=== PATIENT | female | born 1990 | race Caucasian/White ===

== ENCOUNTER 2017-08-27 15:00 | Emergency (ER) | payer MEDICAID ==
[2017-08-27 15:04] VITALS: BP 111/69; BMI 29.4
--- NOTE | 2017-08-27 16:05 | DR.GENAD ---
HPI - PCP Primary Care Physician: BEATRIZ - Complaint/Symptoms Chief Complaint Doctors Comments: Patient presented with complaint of bloody show when she wiped this AM, she admits to being sexually active. She denies abdominal carmps. She saw her OB couple of weeks ago. LMP 06/22/17. Chief Complaint:: PT C/O VAGINAL BLEEDING. PT STATES SHE IS 6-7 WEEKS AND SHE HAD A BM TODAY AND STARTED HAVING BLOODY DISCHARGE. PT STATES THIS JUST HAPPENED AND SHE CAME HERE - Source History Provided: Patient - Mode of Arrival Mode of Arrival: Ambulatory - Timing Onset of Chief Complaint: 08/27/17 PMH - PMH Past Medical History: No Past Surgical History: Yes Surgical History: Appendectomy, Tonsillectomy - Family History History of Family Medical Conditions: No - Social History Does any household member use tobacco: No Alcohol Use: None Do you use any recreational Drugs:: No Lives With: Friend Lives Where: Home - infectious screening In the last 2 months have you had wt loss of >10#?: NO Have you had fever, night sweats or hemotysis?: No Have you traveled outside the country in the last 6 months?: No Isolation: Standard ROS - Review of Systems Eyes: No Symptoms Reported ENTM: No Symptoms Reported Respiratoy: No Symptoms Reported Cardiovascular: No Symptoms Reported Gastrointestinal/Abdominal: No Symptoms Reported Genitourinary: No Symptoms Reported Neurological: No Symptoms Reported Musculoskeletal: No Symptoms Reported Integumentary: No Symptoms Reported Hematologic/Lymphatic: No Symptoms Reported Endocrine: No Symptoms Reported Psychiatric: No Symptoms Reported All Other Systems: Reviewed and Negative PE - Vital Signs Vitals: Temperature 97.8 F Pulse Rate 83 Respiratory Rate 18 Blood Pressure 111/69 O2 Sat by Pulse Oximetry 98 - General General Appearance: Alert, In No Apparent Distress - Head Head Exam: Normal Inspection, Atraumatic - Eyes Eye exam: Normal Appearance, PERRL, EOMI - ENT ENT Exam: Normal Exam External Ear Exam: Normal External Inspection TM/Canal Exam: Bilateral Normal Nose Exam: Normal Nose Exam Mouth Exam: Normal Inspection Throat Exam: Normal Inspection - Neck Neck Exam: Normal Inspection - Chest Chest Inspection: Normal Inspection - Respiratory Respiratory Exam: Normal Lung Sounds Bilat Respiratory Exam: Bilateral Clear to Auscultation - Cardiovascular Cardiovascular Exam: Regular Rate, Normal Rhythm - Abdominal Exam Abdominal Exam: Normal Inspection, Normal Bowel Sounds, Soft Abdominal Tenderness: negative: RUQ, RLQ, LUQ, LLQ, Epigastrium, Suprapubic, Diffuse, Mild, Moderate, Severe, Other - Back Back Exam: Normal Inspection, Full ROM - Neurologic Neurological Exam: Alert, Oriented X3, CN II-XII Intact - Psychiatric Psychiatric Exam: Normal Affect, Normal Mood - Skin Skin Exam: Warm, Dry, Intact ROR - Labs Reviewed Result Diagrams: 08/27/17 16:20 08/27/17 16:20 Laboratory: WBC 8.3 X10^3/uL (3.6-10.0) 08/27/17 16:20 RBC 3.93 X10^6/uL (3.5-5.4) 08/27/17 16:20 Hgb 12.5 g/dL (12.0-16.0) 08/27/17 16:20 Hct 36.4 % (36.0-47.0) 08/27/17 16:20 MCV 92.6 fL (80.0-100.0) 08/27/17 16:20 MCH 31.7 pg (27.0-34.0) 08/27/17 16:20 MCHC 34.2 g/dL (33.0-35.0) 08/27/17 16:20 RDW 12.1 % (11.6-16.5) 08/27/17 16:20 Plt Count 217 X10^3/uL (150.0-450.0) 08/27/17 16:20 MPV 9.8 fL (7.4-11.0) 08/27/17 16:20 Neut % 71.3 % (42.0-75.0) 08/27/17 16:20 Lymph % 21.7 % (21.0-51.0) 08/27/17 16:20 [place] % 5.3 % (0.0-13.0) 08/27/17 16:20 Eos % 0.7 % (0.9-2.9) L 08/27/17 16:20 Baso % 1.0 % (0.2-1.0) 08/27/17 16:20 Neut # 5.9 x10^3/uL (2.2-4.8) H 08/27/17 16:20 Lymph # 1.8 X10^3/uL (1.3-2.9) 08/27/17 16:20 [place] # 0.4 x10^3/uL (0.3-0.8) 08/27/17 16:20 Eos # 0.1 x10^3/uL (0.0-0.2) 08/27/17 16:20 Baso # 0.1 X10^3/uL (0.0-0.1) 08/27/17 16:20 Absolute Nucleated RBC 0.0 /100WBC 08/27/17 16:20 Sodium 139 mmol/L (136-145) 08/27/17 16:20 Corrected Sodium TNP 08/27/17 16:20 Potassium 4.6 mmol/L (3.5-5.1) 08/27/17 16:20 Chloride 105 mmol/L (98-107) 08/27/17 16:20 Carbon Dioxide 25.8 mmol/L (21-32) 08/27/17 16:20 BUN 9 mg/dL (7-18) 08/27/17 16:20 Creatinine 0.67 mg/dL (0.55-1.02) 08/27/17 16:20 Est GFR (MDRD) Af Amer > 60 (>60) 08/27/17 16:20 Est GFR (MDRD) Non-Af > 60 (>60) 08/27/17 16:20 Glucose 89 mg/dL (65-99) 08/27/17 16:20 Calcium 8.8 mg/dL (8.5-10.1) 08/27/17 16:20 HCG, Quant 75246 mIU/mL (0-6) H 08/27/17 16:20 Specimen Type Clean catch urine 08/27/17 17:39 Urine Color Yellow (YELLOW) 08/27/17 17:39 Urine Appearance Clear (CLEAR) 08/27/17 17:39 Urine pH 6.0 (5.0 - 8.0) 08/27/17 17:39 Ur Specific [place] 1.020 (1.000-1.030) 08/27/17 17:39 Urine Protein Negative (NEGATIVE) 08/27/17 17:39 Urine Glucose (UA) Negative (NEGATIVE) 08/27/17 17:39 Urine Ketones Negative (NEGATIVE) 12/18/17 17:39 Urine Occult Blood 1+ (NEGATIVE) 08/27/17 17:39 Urine Nitrite Negative (NEGATIVE) 08/27/17 17:39 Urine Bilirubin Negative (NEGATIVE) 08/27/17 17:39 Urine Urobilinogen Normal (NORMAL) 08/27/17 17:39 Ur Leukocyte Esterase Negative (NEGATIVE) 08/27/17 17:39 Urine RBC Rare /HPF (NEGATIVE) 08/27/17 17:39 Urine WBC Rare /HPF (NEGATIVE) 08/27/17 17:39 Ur Squamous Epith Cells Many /HPF (NEGATIVE) 08/27/17 17:39 Urine Bacteria Negative /HPF (NEGATIVE) 08/27/17 17:39 Ur Culture Indicated? No/not indicated 08/27/17 17:39 - XRAY XRAY Interpreted by: Radiologist (OB US: The uterus measures 8.6x4.8x5.6cm. No myometrial mass lesions are seen. There is a single intrauterine gestation with a crown-rump length of 6.6mm.corresponding to an average gestational age of 6 weeks, 4 days. heart tones are detected and measured 124 beast per minute. Mean gestational sac diameter is 16.9 mm. There is no visible subchorionic hemorrhage. Both ovaries are well seen and are unremarkable, the right measuring 2.8x2.2x2.3 cm and the left measuring 3.0x2.4x2.2cm. There is symmetric color Doppler flow to both ovaries. No significant free fluid is identified within the cul-de-sac. Impression:A viable single intrauterine gestation with an average ultrasound age of 6 weeeks,4days correspond to an estimated date of delivery of 03/31/18. No acute abnormality identified.) - Diagnosis Discharge Problem: Intrauterine - Discharge Plan Condition: Stable - Follow ups/Referrals Follow ups/Referrals: CATARINA HENDERSON [Primary Care Provider] - 3 days - Instructions
[2017-08-27 16:35] LABS: BASOPHILS # (AUTO) 0.1 X10^3/uL (0.0-0.1); EOSINOPHILS # (AUTO) 0.1 x10^3/uL (0.0-0.2); EOSINOPHILS % (AUTO) 0.7 % (0.9-2.9); HEMATOCRIT 36.4 % (36.0-47.0); HEMOGLOBIN 12.5 g/dL (12.0-16.0); LYMPHOCYTES # (AUTO) 1.8 X10^3/uL (1.3-2.9); LYMPHOCYTES % (AUTO) 21.7 % (21.0-51.0); MEAN CORPUSCULAR HEMOGLOBIN 31.7 pg (27.0-34.0); MEAN CORPUSCULAR HGB CONC 34.2 g/dL (33.0-35.0); MEAN CORPUSCULAR VOLUME 92.6 fL (80.0-100.0); MEAN PLATELET VOLUME 9.8 fL (7.4-11.0); MONOCYTES # (AUTO) 0.4 x10^3/uL (0.3-0.8); MONOCYTES % (AUTO) 5.3 % (0.0-13.0); NEUTROPHILS # (AUTO) 5.9 x10^3/uL (2.2-4.8); NEUTROPHILS % (AUTO) 71.3 % (42.0-75.0); PLATELET COUNT 217 X10^3/uL (150.0-450.0); RED BLOOD COUNT 3.93 X10^6/uL (3.5-5.4); RED CELL DISTRIBUTION WIDTH 12.1 % (11.6-16.5); WHITE BLOOD COUNT 8.3 X10^3/uL (3.6-10.0)
[2017-08-27 16:37] LABS: BLOOD UREA NITROGEN 9 mg/dL (7-18); CALCIUM 8.8 mg/dL (8.5-10.1); CARBON DIOXIDE 25.8 mmol/L (21-32); CHLORIDE 105 mmol/L (98-107); CREATININE 0.67 mg/dL (0.55-1.02); SODIUM 139 mmol/L (136-145); eGFR BLACK RACES > 60 (>60); eGFR NON BLACK RACES > 60 (>60)
[2017-08-27 17:04] LABS: HCG,QUANTITATIVE 58239 mIU/mL (0-6)
[2017-08-27 17:49] LABS: BILIRUBIN,URINE NEGATIVE (NEGATIVE); BLOOD/HEMOGLOBIN,URINE 1+ (NEGATIVE); GLUCOSE, URINE NEGATIVE (NEGATIVE); KETONES,URINE NEGATIVE (NEGATIVE); LEUKOCYTE ESTERASE ,URINE NEGATIVE (NEGATIVE); NITRITES,URINE NEGATIVE (NEGATIVE); PROTEIN,URINE NEGATIVE (NEGATIVE); UROBILINOGEN,URINE NORMAL (NORMAL)
[2017-08-27 18:05] LABS: APPEARANCE,URINE CLEAR (CLEAR); COLOR,URINE YELLOW (YELLOW)
[2017-08-27 18:06] LABS: BACTERIA,URINE NEGATIVE /HPF (NEGATIVE); RBC,URINE RARE /HPF (NEGATIVE); SQUAMOUS EPITHELIAL CELL,UR MANY /HPF (NEGATIVE)
--- NOTE | 2017-08-27 18:06 | US ---
HISTORY: with vaginal bleeding Study: First-trimester OB ultrasound Comparison: None Technique: Multiple transvaginal grayscale and color flow Doppler images of the pelvis were obtained per protocol. Findings: The uterus measures 8.6 x 4.8 x 5.6 cm. No myometrial mass lesions are seen. There is a single intrau terine gestation with a crown-rump length of 6.6 mm, corresponding to an average gestational age of 6 weeks, 4 days. heart tones are detected and measure 124 beats per minute. Mean gestational sac diameter is 16.9 mm. There is no visible subchorionic hemorrhage. Both ovaries are well seen and are unremarkable, the right measuring 2.8 x 2.2 x 2.3 cm and the left measuring 3.0 x 2.4 x 2.2 cm. There is symmetric color Doppler flow to both ovaries. No significant f ree fluid is identified within the cul-de-sac. IMPRESSION: A viable single intrauterine gestation with an average ultrasound age of 6 weeks, 4 days correspond t o an estimated date of delivery of 03/31/2018. No acute abnormality identified. Reported By:
== END 2017-08-27 18:41 | disposition home or self-care (01) ==
LOC: ER 15:17
DX: O20.9 Hemorrhage in early pregnancy, unspecified (principal); Z3A.01 Less than 8 weeks gestation of pregnancy
CPT/HCPCS: 36415; 76801; 80048; 81001; 84702; 85025; 99282; 99284

== ENCOUNTER → 2018-01-29 | Outpatient (CLI) | payer OTHER ==
[~2018-01-29] MED LIST: HYPERRHO S/D (or RHOGAM) IM ONE
== END ==
LOC: LAB 11:03
PROVIDERS: ATTEND Specialist
DX: Z3A.28 28 weeks gestation of pregnancy (principal); O36.0191 Maternal care for anti-D [Rh] antibodies, unspecified trimester, fetus 1; Z79.899 Other long term (current) drug therapy
CPT/HCPCS: 36415; 86850; 86900; 86901; 90471; J2790

== ENCOUNTER 2018-04-15 06:12 | Inpatient (IN) ==
[2018-04-15] MEDS ORDERED: D5 1/2 NS 1000 ML 1,000 ML IV ONE (06:37)
[2018-04-15] MEDS ORDERED: D5LR 1L W PITOCIN 10 UNITS/L 10 UNITS/1,000 ML BAG IV ONE (06:38)
[2018-04-15] MEDS ORDERED: NS 100 ML IV 100 ML IV ONE ×2 (06:38→15:47)
[2018-04-15] MEDS ORDERED: AMPICILLIN VIAL 2 GRAM ONE (06:39)
[2018-04-15] MEDS ORDERED: PITOCIN ONE ×2 (06:39→15:46)
[2018-04-15] MEDS ORDERED: D5LR 1L W PITOCIN 10 UNITS/L 10 UNITS/1,000 ML BAG IV PRN (07:02)
[2018-04-15] MEDS ORDERED: D5 1/2 NS 1000 ML 1,000 ML IV SCH (07:02)
[2018-04-15] MEDS ORDERED: REGLAN INJ 10 MG VIAL IVP PRN ×2 (07:02→21:20)
[2018-04-15] MEDS ORDERED: PITOCIN IVP ONE (07:02)
[2018-04-15] MEDS ORDERED: NUBAIN INJ 200 MG VIAL MULTIDOSE IVP PRN (07:02)
[2018-04-15] MEDS ORDERED: MORPHINE SULFATE INJ 2 MG INJ IVP PRN (07:02)
[2018-04-15] MEDS ORDERED: PHENERGAN INJ 25 MG IV PRN (07:02)
[2018-04-15] MEDS ORDERED: AMPICILLIN VIAL 2 GRAM 2 G in NS 100 ML IV + SPIKE MINIBAG* 100 ML IV SCH (07:02)
--- NOTE | 2018-04-15 07:29 | DR.OB ---
OB Quick Note - Assessment/Plan Assessment/Plan: L&D 04/15/18 at 6:55am S-No complaint. O-Afebrile,VSS IOL=609 with good LTV, +accel, no decel. CTX=none CVX=1cm/75%/-1/VTX AROM with clear fluid. IUPC and FSE placed. A-IUP at 39 0/7 weeks for induction +GBS Rh- P-Begin pitocin induction IV ABX in labor Anticipate
[2018-04-15] MEDS: AMPICILLIN VIAL 1 GRAM 1 G in NS 50 ML IV + SPIKE MINIBAG* 50 ML IV SCH ×3 (08:53→15:51)
[2018-04-15] MEDS ORDERED: HYPERRHO S/D (or RHOGAM) IM ONE (10:27)
[2018-04-15] MEDS ORDERED: AMPICILLIN VIAL 1 GRAM ONE ×2 (10:46→15:47)
[2018-04-15] MEDS ORDERED: NS 100 ML IV + SPIKE MINIBAG* 100 ML IV ONE (10:47)
--- NOTE | 2018-04-15 12:06 | DR.OB ---
OB Quick Note - Assessment/Plan Assessment/Plan: L&D 04/15/18 at 11:55am Pitocin=12mu/min. Ampicillin S-No complaint except CTX. O-Afebrile,VSS CHL=598 with good LTV, +accel, no decel. CTX=q 1 1/2 to 2 min., about 45-65mmHg CVX=3cm/80%/-1 A-IUP at 39 0/7 weeks for induction +GBS Rh- P-Cont. pitocin induction/ABX in labor Anticipate
[2018-04-15] MEDS ORDERED: ZOFRAN INJ 4 MG VIAL ONE (15:46)
[2018-04-15] MEDS ORDERED: DIPRIVAN VIAL ONE (15:46)
[2018-04-15] MEDS ORDERED: XYLOCAINE 2 % (PLAIN) ONE (15:46)
[2018-04-15] MEDS ORDERED: VERSED ONE (15:46)
[2018-04-15] MEDS ORDERED: NUBAIN INJ 10 ONE (16:29)
--- NOTE | 2018-04-15 17:08 | DR.OB ---
OB Quick Note - Assessment/Plan Assessment/Plan: L&D 04/15/18 at 5:00pm Pitocin=20mu/min. Ampicillin S-No complaint except CTX. O-Afebrile,VSS FRN=886 with good LTV, +accel, no decel. CTX=q 1 1/2 to 2 min., about 45-65mmHg CVX=4cm/100%/-1 A-IUP at 39 0/7 weeks for induction +GBS Rh- P-Cont. pitocin induction Cont. ABX in labor Anticipate
[2018-04-15] MEDS ORDERED: FENTANYL INJ 100 mcg ONE (17:09)
[2018-04-15] MEDS ORDERED: NAROPIN EPIDURAL 0.2% + FENTANYL 90MCG 60 ML EPI ONE (17:09)
[2018-04-15] MEDS ORDERED: LR 1000 ML IV 1,000 ML IV ONE ×4 (17:09→19:37)
[2018-04-15] MEDS ORDERED: FENTANYL INJ 100 mcg EPI ONE (17:16)
[2018-04-15] MEDS ORDERED: XYLOCAINE 1 % (PLAIN) ONE (17:28)
[2018-04-15] MEDS ORDERED: XYLOCAINE 1% and EPINEPHRINE 1:100,000 ONE (17:28)
[2018-04-15] MEDS ORDERED: XYLOCAINE 2% and EPINEPHRINE 1:100,000 ONE (17:30)
[2018-04-15] MEDS ORDERED: NAROPIN EPIDURAL 0.2% 60 ML with FENTANYL INJ 100 mcg 90 MCG IVP SCH ×2 (18:00)
[2018-04-15] MEDS ORDERED: ANCEF 1 GRAM IV PREMIX* 1 G/50 ML BAG IV ONE (19:21)
[2018-04-15] MEDS ORDERED: DURAMORPH ONE (19:38)
[2018-04-15] MEDS ORDERED: D5 1/2 NS 1L W PITOCIN 20 UNITS/L 20 UNITS/1,000 ML BAG IV ONE (19:38)
--- NOTE | 2018-04-15 19:46 | DR.OB ---
OB Quick Note - Assessment/Plan Assessment/Plan: L&D 04/15/18 at 7:35pm S-No complaint. s/p epidural. Episode of deceleration into 90's for 3-4 min. resolved. 0-Afebrile,VSS KDE=624 with good LTV, +accel, no decel. CTX=q 1 1/2 to 3 min., about 45-65mmHg CVX=4cm/100%/-1 (no change in 2 hours) A-IUP at 39 0/7 weeks for induction +GBS Rh- P-To C/S
[2018-04-15] MEDS ORDERED: BENADRYL INJ 50 MG VIAL IVP PRN ×2 (21:20→21:24)
[2018-04-15] MEDS ORDERED: PHENERGAN INJ 25 MG IVP PRN (21:20)
[2018-04-15] MEDS ORDERED: ZOFRAN INJ 4 MG VIAL IVP PRN ×2 (21:20→21:24)
[2018-04-15] MEDS ORDERED: PERCOCET TAB 5/325 MG PO PRN (21:24)
[2018-04-15] MEDS ORDERED: ADACEL or BOOSTRIX TDaP VACCINE IM ONE (21:24)
[2018-04-15] MEDS ORDERED: NARCAN INJ IVP PRN (21:24)
[2018-04-15] MEDS ORDERED: HYPERRHO S/D (or RHOGAM) IM PRN (21:24)
[2018-04-15] MEDS ORDERED: TORADOL 30 MG VIAL IVP PRN (21:24)
[2018-04-15] MEDS ORDERED: MYLICON TAB 80 MG CHEW PO PRN (21:24)
[2018-04-15] MEDS ORDERED: D5 1/2 NS 1000 ML 1,000 ML with PITOCIN 20 UNITS IV SCH ×2 (22:00)
[2018-04-16 05:15] LABS: HEMATOCRIT 25.7 % (36.0-47.0)
[2018-04-16] MEDS: PRENATAL PLUS PO SCH (09:25)
[2018-04-16] MEDS: ZANTAC PO SCH ×2 (09:28→22:01)
[2018-04-16] MEDS: COLACE CAP 100 MG PO SCH ×2 (12:41→22:01)
[2018-04-16] MEDS: BACTROBAN TOPICAL OINT TOP SCH ×3 (12:42→22:01)
[2018-04-16] MEDS: MOTRIN TAB 800 MG PO PRN (17:21)
[2018-04-16] MEDS: FERROUS GLUCONATE PO SCH (17:21)
[2018-04-17] MEDS: MOTRIN TAB 800 MG PO PRN (04:00)
[2018-04-17] MEDS: BACTROBAN TOPICAL OINT TOP SCH (06:04)
[2018-04-17] MEDS: FERROUS GLUCONATE PO SCH (06:05)
[2018-04-17 09:30] VITALS: BP 132/68
[2018-04-17] MEDS: ZANTAC PO SCH (09:36)
[2018-04-17] MEDS: COLACE CAP 100 MG PO SCH (09:36)
[2018-04-17] MEDS: PRENATAL PLUS PO SCH (09:36)
== END 2018-04-17 13:40 | disposition home or self-care (01) | DRG 765 ==
LOC: LD 06:12 → MED/SURG 21:45
PROVIDERS: ADMIT Specialist; ATTEND Specialist
DX: O99.824 Streptococcus B carrier state complicating childbirth; O62.0 Primary inadequate contractions; O36.0930 Maternal care for other rhesus isoimmunization, third trimester, not applicable or unspecified; Z37.0 Single live birth; Z01.818 Encounter for other preprocedural examination; B95.1 Streptococcus, group B, as the cause of diseases classified elsewhere; Z3A.39 39 weeks gestation of pregnancy
CPT/HCPCS: 36415; 80048; 80307; 81003; 85014; 85018; 85025; 85461; 86592; 86850; 86900; 86901; A4216; A4222; S0197; G0434; J0290; J0690; J1885; J2001; J2250; J2300; J2405; J2590; J2704; J2790; J3010; J3490; J7050; J7120; S5010

== ENCOUNTER 2023-05-18 06:26 | Inpatient (IN) ==
[2023-05-18] MEDS ORDERED: ANCEF VIAL 1 GRAM IVP ONE (06:38)
[2023-05-18] MEDS ORDERED: D5 1/2 NS 1,000 ML 1,000 ML IV SCH (06:38)
[2023-05-18] MEDS ORDERED: NS 100 ML IV 100 ML ONE (06:40)
[2023-05-18] MEDS ORDERED: ANCEF VIAL 1 GRAM ONE (06:40)
[2023-05-18] MEDS ORDERED: LR 1,000 ML IV 1,000 ML IV ONE ×2 (06:40)
[2023-05-18] MEDS ORDERED: XYLOCAINE 2 % (PLAIN) ONE (07:22)
[2023-05-18] MEDS ORDERED: VERSED ONE ×2 (07:22→08:41)
[2023-05-18] MEDS ORDERED: DILAUDID INJ ONE (07:22)
[2023-05-18] MEDS ORDERED: PEPCID 20 MG VIAL ONE (07:23)
[2023-05-18] MEDS ORDERED: MARCAINE SPINAL ONE (07:23)
[2023-05-18] MEDS ORDERED: EPHEDRINE SULFATE INJ ONE (07:42)
[2023-05-18] MEDS ORDERED: PITOCIN ONE (07:52)
[2023-05-18] MEDS ORDERED: NS IRRIGATION* 500 ML IR ONE (08:00)
[2023-05-18] MEDS ORDERED: D5 1/2 NS 1,000 mL + PITOCIN 20 UNITS/L IV 20 UNITS/1,000 ML BAG IV ONE (08:36)
[2023-05-18] MEDS ORDERED: ZOFRAN INJ 4 MG VIAL ONE (08:41)
[2023-05-18] MEDS ORDERED: BENADRYL INJ 50 MG VIAL IVP PRN ×2 (09:26→09:51)
[2023-05-18] MEDS ORDERED: BARHEMSYS INJ IVP PRN (09:26)
[2023-05-18] MEDS ORDERED: REGLAN INJ 10 MG VIAL IVP PRN ×2 (09:26→09:51)
[2023-05-18] MEDS ORDERED: ZOFRAN INJ 4 MG VIAL IVP PRN ×2 (09:26→09:51)
[2023-05-18] MEDS ORDERED: DILAUDID INJ IVP PRN (09:26)
[2023-05-18] MEDS ORDERED: ADACEL or BOOSTRIX TDaP VACCINE IM ONE (09:51)
[2023-05-18] MEDS ORDERED: HYPERRHO S/D (or RHOGAM) IM PRN (09:51)
[2023-05-18] MEDS ORDERED: PERCOCET TAB 5/325 MG PO PRN ×2 (09:51→15:09)
[2023-05-18] MEDS ORDERED: NARCAN INJ IVP PRN (09:51)
[2023-05-18] MEDS ORDERED: MYLICON TAB 80 MG CHEW PO PRN (09:51)
[2023-05-18] MEDS ORDERED: TORADOL 30 MG VIAL IVP PRN (09:51)
[2023-05-18] MEDS ORDERED: D5 1/2 NS 1,000 ML 1,000 ML with PITOCIN 20 UNITS IV SCH ×2 (10:00)
[2023-05-18] MEDS: MOTRIN TAB 800 MG PO PRN (16:42)
[2023-05-18] MEDS: COLACE CAP 100 MG PO SCH (21:15)
[2023-05-18] MEDS: BACTROBAN TOPICAL OINT TOP SCH (21:15)
[2023-05-19 03:55] VITALS: RESP 18
[2023-05-19] MEDS: MOTRIN TAB 800 MG PO PRN (03:55)
[2023-05-19] MEDS: BACTROBAN TOPICAL OINT TOP SCH (05:01)
[2023-05-19 05:36] LABS: HEMATOCRIT 25.6 % (36.0-47.0); HEMOGLOBIN 8.8 g/dL (12.0-16.0)
[2023-05-19] MEDS: COLACE CAP 100 MG PO SCH (08:53)
[2023-05-19] MEDS ORDERED: TOPROL XL PO SCH (09:00)
[2023-05-19] MEDS ORDERED: PRENATAL PLUS PO SCH (09:00)
[2023-05-19 09:25] VITALS: BP 113/62; PULSE 90; TEMP 97; O2SAT 100
== END 2023-05-19 11:16 | disposition home or self-care (01) | DRG 784 ==
LOC: LD 06:26 → MED/SURG 10:00
PROVIDERS: ADMIT Specialist; ATTEND Specialist
DX: Z3A.38 38 weeks gestation of pregnancy; R79.82 Elevated C-reactive protein (CRP); Z30.2 Encounter for sterilization; Z37.0 Single live birth; Z01.812 Encounter for preprocedural laboratory examination; O34.211 Maternal care for low transverse scar from previous cesarean delivery; O10.913 Unspecified pre-existing hypertension complicating pregnancy, third trimester; N85.8 Other specified noninflammatory disorders of uterus